=== PATIENT | female | born 1940 | race Caucasian/White ===

== ENCOUNTER → 2018-02-20 | Outpatient (CLI) | payer MEDICARE ==
--- NOTE | 2018-02-20 14:56 | RAD ---
EXAM: Lumbar spine, 5 views; left hip, 2 views. HISTORY: Pain. COMPARISON: None. FINDINGS: Lumbar spine: Frontal, lateral, bilateral oblique and coned sacral views of the lumbar spine are obtained. There is grade 1 anterolisthesis of L2 on L3 and L3 on L4. There is mild levoscoliosis centered at L3. There is degenerative endplate remodeling with disc space narrowing at L3-L4 and L5-S1. There is suspected complete loss of the disc space at L4-L5. There is facet arthropathy at the mid lower lumbar levels. Left hip: Frontal and frog-leg views of the left hip are obtained. There is no fracture, dislocation or subluxation. The femoral head is normal in configuration. The sacroiliac joints are intact. IMPRESSION: 1. Multilevel degenerative change of the lumbar spine, described above. There is suspected complete loss of the disc space at L4-L5. 2. Lumbar scoliosis and multilevel listhesis. 3. No acute osseous finding. Electronically signed by: Melissa Enciso MD (02/20/2018 2:52 PM) [id number]
== END | disposition home or self-care (01) ==
LOC: PMG 12:22
PROVIDERS: ATTEND Physician Assistant
DX: M41.86 Other forms of scoliosis, lumbar region (principal); M48.061 Spinal stenosis, lumbar region without neurogenic claudication; M12.88 Other specific arthropathies, not elsewhere classified, other specified site; M25.552 Pain in left hip
CPT/HCPCS: 72110; 73502

== ENCOUNTER → 2018-12-20 | Outpatient (CLI) | payer MEDICARE ==
[~2018-12-20] MED LIST: ASPI81TA50 PO; CARV25TA2 PO; FURO80TA72 PO; GABA600T7 PO; LEVO100T5 PO; MELO15TA23 PO; POTA20TA4 PO; SENN8.6T99 PO; SIMV40TA3 PO
--- NOTE | 2018-12-21 11:00 | RAD ---
DATE: 12/20/2018 EXAM: DIGITAL SCREEN BILAT W/CAD HISTORY: Routine screening COMPARISON: 03/31/2010 This study was interpreted with the benefit of Computerized Aided Detection (CAD). Breast Density: HETERO The breast parenchyma is heterogenously dense, which could reduce sensitivity of mammography. Breast parenchyma level C. FINDINGS: The fibroglandular pattern in both breasts is heterogeneously dense and somewhat nodular in character. No new or enlarging breast densities are seen. Minimal benign type calcification is present. No suspicious microcalcifications are evident. Benign-appearing lymph node type densities are projected over the axillary regions. IMPRESSION: There is no mammographic evidence of malignancy in either breast. The patient may benefit from 3-D mammography at the time of her follow-up yearly screening study, in view of the density of her breasts. BI-RADS CATEGORY: 2 BENIGN FINDING(S) RECOMMENDED FOLLOW-UP: 12M 12 MONTH FOLLOW-UP PQRS compliance statement: Patient information was entered into a reminder system with a target due date for the next mammogram. Mammography is a sensitive method for finding small breast cancers, but it does not detect them all and is not a substitute for careful clinical examination. A negative mammogram does not negate a clinically suspicious finding and should not result in delay in biopsying a clinically suspicious abnormality. "Our facility is accredited by the [employer] Mammography Program."
== END | disposition home or self-care (01) ==
LOC: MAMMO 08:46
DX: Z12.31 Encounter for screening mammogram for malignant neoplasm of breast (principal)
CPT/HCPCS: 77067

== ENCOUNTER → 2019-01-08 | Day surgery (SDC) | payer MEDICARE ==
[~2019-01-08] MED LIST changes: +ALBUTEROL SULFATE 2.5 MG/3 ML NEBU. NEB PRN; +ATROPINE 0.5 MG/5 ML DISP.SYRIN. IV PRN; +LIDOCAINE 2% PF Vial for OR 5 ML VIAL. ONE; +NALOXONE 0.4 MG/ML VIAL. IV PRN; +ONDANSETRON PF 4 MG/2 ML VIAL. IV PRN; +PROPOFOL 20 ML IV ONE; +diphenhydrAMINE 50 MG/ML VIAL IV PRN
[2019-01-08] MEDS: IV RINGERS SOLUTION,LACTATED 1,000 ML IV SCH (09:50)
[2019-01-08 11:25] VITALS: BP 111/59
== END | disposition home or self-care (01) ==
LOC: SURG 08:53
PROVIDERS: ATTEND Internal Medicine Gastroenterology
DX: K22.2 Esophageal obstruction (principal); K44.9 Diaphragmatic hernia without obstruction or gangrene; I13.0 Hypertensive heart and chronic kidney disease with heart failure and stage 1 through stage 4 chronic kidney disease, or unspecified chronic kidney disease; N18.9 Chronic kidney disease, unspecified; I50.9 Heart failure, unspecified; I25.10 Atherosclerotic heart disease of native coronary artery without angina pectoris; E78.5 Hyperlipidemia, unspecified; E03.9 Hypothyroidism, unspecified; I42.9 Cardiomyopathy, unspecified; J45.909 Unspecified asthma, uncomplicated; M19.90 Unspecified osteoarthritis, unspecified site; Z88.1 Allergy status to other antibiotic agents; Z79.82 Long term (current) use of aspirin; Z79.899 Other long term (current) drug therapy; Z90.710 Acquired absence of both cervix and uterus; Z90.49 Acquired absence of other specified parts of digestive tract; Z98.890 Other specified postprocedural states
CPT/HCPCS: 43249; J2704; J7120; 43220; J2001

== ENCOUNTER → 2019-03-29 | Outpatient (CLI) | payer MEDICARE ==
[2019-01-08 11:25] VITALS: BP 111/59
[~2019-03-29] MED LIST changes: -ALBUTEROL SULFATE 2.5 MG/3 ML NEBU. NEB PRN; -ATROPINE 0.5 MG/5 ML DISP.SYRIN. IV PRN; -LIDOCAINE 2% PF Vial for OR 5 ML VIAL. ONE; -NALOXONE 0.4 MG/ML VIAL. IV PRN; -ONDANSETRON PF 4 MG/2 ML VIAL. IV PRN; -PROPOFOL 20 ML IV ONE; -diphenhydrAMINE 50 MG/ML VIAL IV PRN
--- NOTE | 2019-03-29 14:53 | RAD ---
Chest, 2 views, 03/29/2019: HISTORY: Cough The heart size is normal. There is calcific plaquing and tortuosity of the thoracic aorta. There is mild scarring over the pulmonary apices. No acute infiltrate is seen. There is no evidence of pleural fluid. Moderate hypertrophic spurring is present in the spine. IMPRESSION: 1. Aortic atherosclerosis. 2. No acute cardiopulmonary abnormality is detected. Electronically signed by: Sancho Baptiste MD (03/29/2019 2:50 PM) [facility]
== END | disposition home or self-care (01) ==
LOC: PMG 14:09
PROVIDERS: ATTEND Physician Assistant
DX: I70.0 Atherosclerosis of aorta (principal); J98.4 Other disorders of lung
CPT/HCPCS: 71046

== ENCOUNTER → 2020-01-02 | Outpatient (CLI) | payer MEDICARE ==
[2019-01-08 11:25] VITALS: BP 111/59
[~2020-01-02] MED LIST changes: +SIMV40TA18 PO; -SIMV40TA3 PO
--- NOTE | 2020-01-02 13:07 | RAD ---
EXAM: Abdomen, 2 views. HISTORY: Pain. COMPARISON: None. FINDINGS: 2 views of the abdomen are obtained. No abnormally dilated loop of bowel is seen. There is no free air. There is partial visualization of a cardiac pacemaker. There is lumbar scoliosis. There are calcified granulomas throughout the spleen. IMPRESSION: Nonobstructive bowel gas pattern. Electronically signed by: Melissa Enciso MD (01/02/2020 1:04 PM) [id number]
== END | disposition home or self-care (01) ==
LOC: PMG 12:09
PROVIDERS: ATTEND Physician Assistant
DX: D73.89 Other diseases of spleen (principal); R10.30 Lower abdominal pain, unspecified; R11.2 Nausea with vomiting, unspecified; M41.86 Other forms of scoliosis, lumbar region
CPT/HCPCS: 74019

== ENCOUNTER → 2020-06-09 | Outpatient (CLI) | payer MEDICARE ==
[2019-01-08 11:25] VITALS: BP 111/59
--- NOTE | 2020-06-09 16:43 | CARD ---
MR#: [id number] Date of Study: 06/09/2020 Ordering Physician: ROSARIO PEREZ, Referring Physician: ROSARIO PEREZ, Tech: Mindy Dalton APPROVED REPORT EXAM: Two-dimensional and M-mode echocardiogram with Doppler and color Doppler. Other Information Quality : AverageHR: 76bpm INDICATION Cardiomyopathy Surgery/Intervention Pacemaker: RISK FACTORS Hypertension Hyperlipidemia 2D DIMENSIONS RVDd2.7 (2.9-3.5cm)Left Atrium(2D)3.0 (1.6-4.0cm) IVSd1.1 (0.7-1.1cm)Aortic Root(2D)3.2 (2.0-3.7cm) LVDd5.1 (3.9-5.9cm)LVOT Diameter2.1 (1.8-2.4cm) PWd1.0 (0.7-1.1cm)LVDs3.6 (2.5-4.0cm) FS (%) 29.1 %SV69.2 ml LVEF(%)55.5 (>50%) Aortic Valve AoV Peak Herbie.148.1cm/sAoV VTI27.3cm AO Peak GR.8.8mmHgLVOT Peak Herbie.90.2cm/s LVOT VTI 16.62cmAO Mean GR.5mmHg SUGAR (VMAX)2.85fx0QEX (VTI)2.19cm2 Mitral Valve MV E Jqoqprhc70.8cm/sMV E Peak Gr.4mmHg MV DECEL ONET962pjGA A Dhblywln493.3cm/s MV E Mean Gr.2mmHgE/A Ratio0.4 Pulmonary Valve PV Peak Jnfvqzru940.6cm/sPV Peak Grad.6mmHg Tricuspid Valve TR P. Uhvlegal995po/sRAP FTXRNXID0jvDc TR Peak Gr.69faPwONPK83fkSl Pulmonary Vein S1 Phxlsvwm01.3cm/sD2 Wbesvgdu86.5cm/s LEFT VENTRICLE The left ventricle is normal size. There is borderline to mild concentric left ventricular hypertroph y. The left ventricular systolic function is mildly diminished. The Ejection Fraction is 45%. Abnorma l septal motion probably from pacemaker activation. Transmitral Doppler flow pattern is Grade I-abnor mal relaxation pattern. RIGHT VENTRICLE The right ventricle is normal size. There is normal right ventricular wall thickness. The right ventr icular systolic function is normal. ATRIA The left atrium size is normal. The right atrium size is normal. The interatrial septum is intact wit h no evidence for an atrial septal defect or patent foramen ovale as noted on 2-D or Doppler imaging. AORTIC VALVE The aortic valve is normal in structure and function. Doppler and Color Flow revealed no significant aortic regurgitation. There is no significant aortic valvular stenosis. MITRAL VALVE The mitral valve is normal in structure and function. There is no evidence of mitral valve prolapse. There is no mitral valve stenosis. Doppler and Color Flow revealed no mitral valve regurgitation note d. TRICUSPID VALVE The tricuspid valve is normal in structure and function. Doppler and Color Flow revealed trace tricus pid regurgitation with an estimated PAP of 24 mmHg. There is no tricuspid valve stenosis. PULMONIC VALVE The pulmonic valve is not well visualized. Doppler and Color Flow revealed no pulmonic valvular regur gitation. GREAT VESSELS The aortic root is normal in size. The ascending aorta is Mildly dilated measuring 3.9 cm. The IVC is normal in size and collapses >50% with inspiration. PERICARDIAL EFFUSION There is no evidence of significant pericardial effusion. Critical Notification Critical Value: No <Conclusion> The left ventricular systolic function is mildly diminished. The Ejection Fraction is 45%. Abnormal septal motion probably from pacemaker activation. Transmitral Doppler flow pattern is Grade I-abnormal relaxation pattern. Trace tricuspid regurgitation with an estimated PAP of 24 mmHg. There is no evidence of significant pericardial effusion. Signed by : Haim Garay, Electronically Approved : 06/09/2020 16:42:55
== END | disposition home or self-care (01) ==
LOC: ECHO 14:17
PROVIDERS: ATTEND Internal Medicine Cardiovascular Disease
DX: I11.9 Hypertensive heart disease without heart failure (principal); I42.9 Cardiomyopathy, unspecified
CPT/HCPCS: 93306

== ENCOUNTER → 2021-01-13 | Outpatient (CLI) | payer MEDICARE ==
[2019-01-08 11:25] VITALS: BP 111/59
--- NOTE | 2021-01-13 12:56 | RAD ---
EXAM: Head CT without contrast. HISTORY: Dizziness. Headache. Hypertension. TECHNIQUE: Computed tomographic images of the head were obtained without contrast. *One or more of the following individualized dose reduction techniques were utilized for this examina tion: 1. Automated exposure control. 2. Adjustment of the mA and/or kV according to patient size. 3. Use of iterative reconstruction technique. COMPARISON: None. FINDINGS: There is no acute or subacute extra-axial or intraparenchymal hemorrhage. There is no mass effect or midline shift. There is no hydrocephalus. There are areas of decreased attenuation within the cerebral white matter, nonspecific and likely rel ated to chronic small vessel disease. There is evidence of lens surgery. The visualized paranasal sinuses mastoid air cells are clear. Ther e is no suspicious calvarial lesion. IMPRESSION: 1. No acute intracranial finding. Note is made that MRI is more sensitive for acute infarction. 2. Bilateral cerebral white matter changes, most commonly due to chronic small vessel disease in a pa tient of this age. Electronically signed by: Melissa Enciso MD (01/13/2021 12:54 PM) [email or web address]
== END ==
LOC: RAD 12:27
DX: R51.9 Headache, unspecified (principal); R47.01 Aphasia; R42 Dizziness and giddiness; I10 Essential (primary) hypertension; R26.89 Other abnormalities of gait and mobility
CPT/HCPCS: 70450

== ENCOUNTER → 2021-04-20 | Outpatient (CLI) | payer MEDICARE ==
[2019-01-08 11:25] VITALS: BP 111/59
--- NOTE | 2021-04-20 11:15 | RAD ---
XR CHEST 2V History: Chest pain. Comparison: Two-view chest March 29, 2019. Findings: There is left chest dual-chamber pacer. Atherosclerotic thoracic aorta. The cardiac size is normal. P ulmonary vasculature is normal. The lungs are clear. No pleural effusion or pneumothorax is seen. The re is no acute bone abnormality. There is degenerative endplate spurring of the thoracic spine. IMPRESSION: No acute cardiopulmonary process. Electronically signed by: Dario Gamez MD (04/20/2021 11:13 AM) [id number]
== END ==
LOC: PMG 10:38
PROVIDERS: ATTEND Nurse Practitioner Family
DX: J22 Unspecified acute lower respiratory infection (principal); I70.0 Atherosclerosis of aorta
CPT/HCPCS: 71046

== ENCOUNTER → 2021-08-19 | Outpatient (CLI) | payer MEDICARE ==
[2019-01-08 11:25] VITALS: BP 111/59
[~2021-08-19] MED LIST changes: +POTA-121 PO; -POTA20TA4 PO; +REGADENOSON 0.4 MG/5 ML DISP.SYRIN. IV ONE
--- NOTE | 2021-08-19 12:15 | RAD ---
MR#: [id number] Date of Study: 08/19/2021 Ordering Physician: ROSARIO PEREZ, Referring Physician: YO BAY Tech: RT Mark (R) (N) APPROVED REPORT Test Type: Pharmacological Stress Nurse/Tech: Jomar Mari / Augustine Bauer Test Indications: Chest Pain Cardiac History: Pacemaker Medications: See EHR Resting Heart Rate: 69 bpm Resting Blood Pressure: 137/64mmHg Pretest Chest Pain: None Pharm. Details Pharmacologic stress testing was performed using 0.4mg per 5ml of regadenoson given intravenously ove r 7-10 seconds. Stress Symptoms Dyspnea POST EXERCISE Reason for Termination: Infusion complete Max HR: 86 bpm Max Blood Pressure: 127/52mmHg Blood Pressure response to exercise: Normal blood pressure response during stress. Heart Rate response to exercise: Normal Chest Pain: No. Arrhythmia: No. ST Change: No. INTERPRETATION Stress EKG Conclusion: Baseline EKG showed sinus rhythm with left bundle branch block. Nondiagnostic changes at peak stress. No arrhythmias. Imaging Protocol IMAGE PROTOCOL: Rest Tc-99m/stress Tc-99m 1 day Rest: Stress: Viability: Radiopharm.Tc99m AvrmwejvvMc57v Sestamibi Xtam18cHs 32mCi Duration 15min. 15min. Img Date 08/19/2021 08/19/2021 Inj-Img Ninb17teh. 60min. Rest Admin Site:IV - Right AntecubitalAdministrator: RT Mark (R)(N) Stress Admin Site: IV - Right AntecubitalAdministrator: RT Mark (R)(N) STRESS DATA End Diast. Vol.92.0mlAv. Heart Rate76.0bpm End Syst. Vol.35.0mlCO Index BSA0.0L/min Myocardial Vfgu130.0gEject. Sqlgxthl67.0% Stress Rates Pk. Fill Rate2.32EDV/secLVtime Pk. Fill 98.35msec Pk. Empty Rate4.42ESV/secLVtime Pk. Bksrm681.24msec 10/18 Pk. Fill1.63EDV/sec Stress Scores Regional WT0.00Summed WT3.00 Regional WM0.00Summed WM8.00 Study quality was good. Left Ventricular size was Normal at Rest and Stress. Lung uptake was . Left Ventricular ejection fraction is 61%. The rest and stress images show normal perfusion, normal contraction and thickening. LV Perf. Quant 17 Seg. SSS12.00 17 Seg. SRS14.00 17 Seg. SDS0.00 Stress Defect Extent (% LAD)25.60Rest Defect Extent (% LAD)25.60Rev. Defect Extent (% LAD)0.00 Stress Defect Extent (% LCX) 12.50Rest Defect Extent (% LCX)22.50Rev. Defect Extent (% LCX)1.30 Stress Defect Extent (% RCA)14.40Rest Defect Extent (% RCA)32.20Rev. Defect Extent (% RCA)0.00 Stress Defect Extent (% ADDISON)25.40Rest Defect Extent (% ADDISON)33.30Rev. Defect Extent (% ADDISON)0.20 Conclusion 1. Regadenoson cardioisotope stress test did not show any evidence of ischemia or infarct. 2. Normal left ventricular systolic function with ejection fraction calculated at 61%. 3. Low risk for cardiac events. Signed by : Haim Garay, Electronically Approved : 08/19/2021 12:15:04
== END ==
LOC: NM 07:47
PROVIDERS: ATTEND Internal Medicine Cardiovascular Disease
DX: R07.9 Chest pain, unspecified (principal)
CPT/HCPCS: 78452; 93017; A9500; J2785